=== PATIENT | male | born 1985 | race Caucasian/White ===

== ENCOUNTER 2023-04-29 20:19 | Emergency (ER) | payer MEDICARE, OTHER, SELFPAY ==
[2023-04-29 20:23] VITALS: BP 155/80
--- NOTE | 2023-04-29 20:29 | ED.GENMED ---
History of Present Illness
General
Chief Complaint: Crisis Evaluation
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
Exam Limitations: none
Time Seen by Provider: 04/29/23 20:21
History of Present Illness
History of Present Illness:
38-year-old male with history of anxiety and depression who presents after family filed a 302 petition. The patient reportedly has had multiple episodes of psychotic behavior. He has been often screaming at voices as per family and threatening to
kill himself. He also has threatened to kill his father and his mother. Patient recently went out in the cold naked and was missing for some time. The patient states he has had suicide attempt in the past and when asked whether he was suicidal
states 'I am a bit scared'. He does not say he is asked Yazmin but states scares him. Patient denies hallucinations on my exam. He is somewhat withdrawn and flat
Past History
Past History
ED Past Medical History: Psychiatric
ED Past Surgical History: None
Social History
Tobacco: Non-smoker
Drug: Marijuana
Phy Exam
Physical Exam
Physical Exam:
CONSTITUTIONAL Patient alert and oriented to person, place and time. Well-appearing. Vital signs reviewed.
HEAD atraumatic, normocephalic.
EYES eyelids normal to inspection, Pupils equally round and reactive to light, Extraocular muscles intact, Conjunctiva normal, Sclera normal.
NECK normal range of motion, Trachea midline, no jugular venous distention.
RESPIRATORY CHEST No respiratory distress noted, Chest expansion equal, Bilateral breath sounds clear.
CARDIOVASCULAR regular rate and rhythm, Heart sounds normal.
ABDOMEN abdomen nontender, Bowel sounds normal. No distention.
BACK normal inspection, no obvious deformities
UPPER EXTREMITY range of motion normal, Motor strength normal, no cyanosis, no edema.
LOWER EXTREMITY range of motion normal, Motor strength normal, no cyanosis, no edema.
NEURO Speech normal, No focal motor deficits, Kwadwo coma scale 15, Memory normal, Cranial Nerves intact to screening exam.
SKIN skin warm, dry, and normal in color.
PSYCHIATRIC patient oriented to person place and time, withdrawn, flat
Course
Orders/Labs/Results
Orders:
Orders
04/29/23 20:28
PSYCHIATRY CONSULT Routine
Consulting Provider: Heavenly Camara
Was physician already notified: Yes
Crisis Consult Routine
Reason for Consult: hallucinations
Urine Drug Abuse Screen Urgent
04/29/23 20:42
Alcohol Urgent
Complete Blood Count/With Diff Urgent
Comprehensive Metabolic Panel Urgent
Abnormal Lab Results
04/29/23
20:42
Chloride 96 L mmol/L
(98-107)
Glucose 110 H mg/dl
(70-99)
04/29/23 20:42
04/29/23 20:42
Vital Signs
Initial and Last Documented VS:
Initial Vital Signs
Temp Pulse Resp BP Pulse Ox
97.9 F 67 16 155/80 99
04/29/23 20:23 04/29/23 20:23 04/29/23 20:23 04/29/23 20:23 04/29/23 20:23
Last Documented Vital Signs
Temp Pulse Resp BP Pulse Ox
97.9 F 67 16 155/80 99
04/29/23 20:23 04/29/23 20:23 04/29/23 20:23 04/29/23 20:23 04/29/23 20:23
MDM/Problems Addressed
MDM/Problems Addressed:
Acute psychosis, major depression, suicidal ideation, suicidal threat
*Pulse Oximetry
Patient hypoxic: no
*Critical Care Note
Total Time (30-74mins, 75-104mins- exclusive of procedures): Not Applicable
Data Reviewed
Source: patient
Prescriptions/Medications Considered But Not Given:
Considered antipsychotic but patient stable my eval
Patient Management
Escalation/DeEscalation of care consider admission/obs:
Patient seen by telepsychiatry. 302 petition upheld. Crisis to work on placement
ED Attending Note
-
Portions of this chart may have been created with voice recognition software.� Occasional wrong word or��sound alike� substitutions may have occurred due to the inherent limitations of voice recognition software.
Discharge Plan
Departure
Patient Disposition: Psych Facility
Date of Disposition: 04/29/23
Time of Disposition: 20:29
Discharge Problem:
Suicidal ideation, Psychosis
Prescriptions:
No Action
alprazolam 1 mg tablet
1 mg PO 5/D
Patient Comments:
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
quetiapine 200 mg tablet
200 mg PO DAILY
bupropion HCl 75 mg tablet
75 mg PO DAILY
mirtazapine 45 mg tablet
45 mg PO HS
buspirone 15 mg tablet
15 mg PO TID
Zubsolv 5.7-1.4 mg tablet, sublingual
3 tab SUBLINGUAL DAILY
Interventions
Interventions:
*Risk Screen - Suicide Last Done: 04/29/23 20:23
*General Assessment Last Done: 04/29/23 20:23
*Neglect/Abuse Screening Last Done: 04/29/23 20:23
*ED COVID-19 Vaccine History Last Done: 04/29/23 20:23
ED-Psychological Assessment Last Done: 04/29/23 20:32
[2023-04-29 20:32] VITALS: BMI 37.8
[2023-04-29 20:51] LABS: % Basophils 0.6 % (0-2); % Immature Granulocytes 0.4 % (0-0.5); % Lymphocytes 29.1 % (20.5-51.1); % Monocytes 7.3 % (1.7-9.3); % Neutrophils 61.6 % (42.2-75.2); Absolute Basophils 0.1 10^3/uL (0-0.2); Absolute Eosinophils 0.1 10^3/uL (0-0.7); Absolute Lymphocytes 2.4 10^3/uL (1.2-3.4); Absolute Monocytes 0.6 10^3/uL (0.1-0.6); Absolute Neutrophils 5.2 10^3/uL (1.4-6.5); Hematocrit 40.4 % (39.0-52.0); Hemoglobin 13.8 g/dL (13.0-18.0); Mean Corp Hgb Conc. 34.2 g/dL (33.0-37.0); Mean Corpuscular Hgb 28.5 pg (27.0-31.0); Mean Corpuscular Volume 83.3 fL (80.0-94.0); Mean Platelet Volume 10.1 fL (7.4-10.4); Nucleated Red Blood Cells % 0 % (-); Platelet Count 226 10^3/uL (130-400); Red Blood Cell Count 4.85 10^6/uL (4.70-6.10); Red Cell Dist. Width 14.4 % (11.5-14.5); White Blood Cell Count 8.4 10^3/uL (4.8-10.8)
[2023-04-29 21:06] LABS: ALT (SGPT) 32 U/L (0-50); AST (SGOT) 31 U/L (17-59); Albumin 4.5 g/dl (3.5-5.0); Alkaline Phosphatase 100 U/L (38-126); Blood Urea Nitrogen 11 mg/dl (9-20); Calcium 9.4 mg/dl (8.4-10.2); Carbon Dioxide 28 mmol/L (22-30); Chloride 96 mmol/L (98-107); Estimated Creatinine Clearance > 125 ml/min; Glucose 110 mg/dl (70-99); Potassium 4.1 mmol/L (3.5-5.1); Sodium 135 mmol/L (135-145); Total Bilirubin 0.7 mg/dl (0.2-1.3); Total Protein 7.4 g/dl (6.3-8.2); eGFR > 60.00
[2023-04-29 21:08] LABS: Alcohol None Detected
[2023-04-30] MEDS: ATIVAN 1 MG PO (02:26)
--- NOTE | 2023-04-30 02:43 | EDRN ---
Patient escalating. Patient hard to redirect back to room. Security at bedside who also called the police. Patient was given PO Ativan. Patient offered comfort measures (blankets, food etc.) Patient requested to speak to crisis, crisis was at
bedside. One to one maintained.
--- NOTE | 2023-04-30 04:34 | EDRN ---
Notified by 1 to 1 sitting with patient that the patient's behavior was escalating. This RN went to patient's room and witnessed patient attempting to elope. Patient subdued by security. Placed on stretcher and in 4 point leather restraints per
order of Dr. Lovett. Care ongoing per protocol.
[2023-04-30 06:09] VITALS: BP 151/84
[2023-04-30 08:07] LABS: COVID-19 Antigen Negative (Negative)
--- NOTE | 2023-04-30 10:20 | PTCARENOTE ---
pt mentioned how 'he doesn't want to live anymore', Rn notified. sat with pt and talked about any questions and concerns pt may have. Pt is currently calm. will continue to monitor.
== END 2023-04-30 11:45 ==
LOC: EMR 20:19
PROVIDERS: Physician Assistant; CONSULT PHYSICIAN Psychiatry & Neurology Psychiatry; EMERGENCY PHYSICIAN Emergency Medicine; FAMILY PHYSICIAN Internal Medicine
DX: R45.851 Suicidal ideations (principal); F29 Unspecified psychosis not due to a substance or known physiological condition; F32.9 Major depressive disorder, single episode, unspecified; F41.9 Anxiety disorder, unspecified; F32.A Depression, unspecified
CPT/HCPCS: 99285; 80053; 82077; 85025; 87811